=== PATIENT | male | born 1990 ===

== ENCOUNTER 2016-12-14 19:22 | Emergency (ER) | payer OTHER ==
[2016-12-14] MEDS ORDERED: AMOXICILLIN TRIHYDRATE 250 MG CAPSULE ONE (20:00)
== END 2016-12-14 20:05 | disposition home or self-care (01) ==
LOC: ED 19:22
DX: H66.92 Otitis media, unspecified, left ear (principal); F17.220 Nicotine dependence, chewing tobacco, uncomplicated